=== PATIENT | male | born 1985 | race Caucasian/White ===

== ENCOUNTER 2016-04-28 02:09 | Emergency (ER) | payer MEDICAID | END 2016-04-28 03:00 | disposition home or self-care (01) | LOC: D.ER 02:09 | DX: F41.9 Anxiety disorder, unspecified (principal); F31.9 Bipolar disorder, unspecified; G47.00 Insomnia, unspecified ==

== ENCOUNTER 2016-08-01 11:03 | Emergency (ER) | payer MEDICAID | END 2016-08-01 11:40 | disposition home or self-care (01) | LOC: D.ER 11:03 | DX: F41.9 Anxiety disorder, unspecified (principal); F31.9 Bipolar disorder, unspecified; G47.00 Insomnia, unspecified; M06.9 Rheumatoid arthritis, unspecified ==

== ENCOUNTER 2017-04-26 23:34 | Emergency (ER) | payer OTHER | END 2017-04-27 00:23 | disposition home or self-care (01) | LOC: D.ER 23:34 | DX: J20.9 Acute bronchitis, unspecified (principal) ==

== ENCOUNTER 2017-07-23 22:52 | Emergency (ER) | payer OTHER | END 2017-07-24 01:31 | disposition home or self-care (01) | LOC: D.ER 22:52 | DX: M54.2 Cervicalgia (principal); F17.200 Nicotine dependence, unspecified, uncomplicated ==

== ENCOUNTER 2017-08-09 00:51 | Emergency (ER) | payer SELFPAY | END 2017-08-09 02:08 | disposition home or self-care (01) | LOC: D.ER 00:51 | DX: M54.6 Pain in thoracic spine (principal) ==

== ENCOUNTER 2017-12-21 23:58 | Emergency (ER) | payer SELFPAY ==
[~2017-12-21] VITALS: Ht 172.7 cm; Wt 81.8 kg
[2017-12-22 00:02] VITALS: Ht 172.7 cm; Wt 81.8 kg
[2017-12-22] MEDS ORDERED: LEXAPRO10 MG PO (00:04)
[2017-12-22] MEDS ORDERED: PROAIR HFA8.5 GM INH (00:05)
[2017-12-22] MEDS ORDERED: ROBAXIN500 MG PO (00:05)
[2017-12-22] MEDS ORDERED: NEURONTIN 300300 MG PO (01:01)
[2017-12-22] MEDS ORDERED: TORADOL10 MG PO (01:01)
[2017-12-22] MEDS ORDERED: ZANAFLEX4 MG PO (01:01)
[2017-12-22 01:23] VITALS: BP 116/78
== END 2017-12-22 01:23 | disposition home or self-care (01) ==
LOC: D.ER 23:58
DX: M54.16 Radiculopathy, lumbar region (principal)

== ENCOUNTER 2018-09-25 18:40 | Emergency (ER) | payer SELFPAY ==
[~2018-09-25] VITALS: Ht 172.7 cm; Wt 77.3 kg
[~2018-09-25 18:40] MED LIST: LEXAPRO10 MG PO; NEURONTIN 300300 MG PO; PROAIR HFA8.5 GM INH; ROBAXIN500 MG PO; TORADOL10 MG PO; ZANAFLEX4 MG PO
[2018-09-25 19:00] VITALS: Ht 172.7 cm; Wt 77.3 kg
[2018-09-25 19:50] LABS: BASOPHILS 0.2 % (0-2); EOSINOPHILS 0.6 % (0-7); HEMATOCRIT 45.3 % (42.0-54.0); HEMOGLOBIN 15.5 g/dL (13.5-17.5); IMMATURE GRANULOCYTES 0.2 % (0-5); LYMPHOCYTES 14.1 % (15-50); MCH 31.2 pg (26.0-34.0); MCHC 34.2 g/dL (31.0-37.0); MCV 91.1 fL (80.0-100.0); MEAN PLATELET VOLUME 10.3 fL (7.4-10.4); MONOCYTES 10.6 % (2-11); NEUTROPHILS 74.3 % (40-80); PLATELET COUNT 207 10x3/uL (130-400); RBC 4.97 10x6/uL (4.20-6.10); RDW 12.9 % (11.5-14.5); WBC 10.4 10x3/uL (4.8-10.8)
[2018-09-25 20:01] LABS: APPEARANCE CLEAR (CLEAR); BILIRUBIN NEGATIVE (NEGATIVE); COLOR YELLOW (YELLOW); GLUCOSE NEGATIVE (NEGATIVE); KETONE NEGATIVE (NEGATIVE); NITRITE NEGATIVE (NEGATIVE); PROTEIN NEGATIVE (NEGATIVE); UROBILINOGEN NORMAL (NORMAL)
[2018-09-25 20:13] LABS: ALBUMIN 4.8 g/dL (3.4-5.0); ALKALINE PHOSPHATASE 86 U/L (46-116); ALT (SGPT) 30 U/L (10-68); BILIRUBIN - TOTAL 0.67 mg/dL (0.2-1.3); CALC OSMOLALITY 276 mosm/kg (275-300); CALCIUM 9.8 mg/dL (8.5-10.1); CARBON DIOXIDE 30.8 mmol/L (21.0-32.0); CHLORIDE - SERUM 103 mmol/L (98-107); CREATININE - SERUM 0.9 mg/dL (0.6-1.3); POTASSIUM - SERUM 3.3 mmol/L (3.5-5.1); PROTEIN - SERUM 8.4 g/dL (6.4-8.2); SODIUM 141 mmol/L (136-145); UREA NITROGEN 8 mg/dL (7-18); eGFR NON AFRICAN AMERICAN > 90 mL/min (90-120)
[2018-09-25 20:17] LABS: GLUCOSE 65 mg/dL (74-106)
[2018-09-25] MEDS ORDERED: ULTRAM50 MG PO (21:04)
[2018-09-25] MEDS ORDERED: CLEOCIN HCL300 MG PO (21:04)
[2018-09-26 02:31] VITALS: BP 116/74
== END 2018-09-25 22:38 | disposition home or self-care (01) ==
LOC: D.ER 18:40
PROVIDERS: Emergency Medicine
DX: S30.1XXA Contusion of abdominal wall, initial encounter (principal); X58.XXXA Exposure to other specified factors, initial encounter; Y93.89 Activity, other specified; Y92.89 Other specified places as the place of occurrence of the external cause

== ENCOUNTER 2018-10-24 16:10 | Emergency (ER) | payer SELFPAY ==
[~2018-10-24] VITALS: Ht 172.7 cm; Wt 78.2 kg
[~2018-10-24 16:10] MED LIST changes: +CLEOCIN HCL300 MG PO; +ULTRAM50 MG PO
[2018-10-24 16:14] VITALS: Ht 172.7 cm; Wt 78.2 kg
[2018-10-24 17:26] VITALS: BP 119/87
== END 2018-10-24 17:26 | disposition home or self-care (01) ==
LOC: D.ER 16:10
DX: J02.0 Streptococcal pharyngitis (principal)

== ENCOUNTER 2019-01-06 13:59 | Emergency (ER) | payer SELFPAY ==
[~2019-01-06] VITALS: Ht 172.7 cm; Wt 77.3 kg
[2019-01-06 14:02] VITALS: Ht 172.7 cm; Wt 77.3 kg
[2019-01-06] MEDS ORDERED: ULTRAM50 MG PO (15:32)
[2019-01-06 15:53] VITALS: BP 129/89
== END 2019-01-06 15:53 | disposition home or self-care (01) ==
LOC: D.ER 13:59
DX: M54.5 Low back pain (principal); W11.XXXA Fall on and from ladder, initial encounter

== ENCOUNTER 2019-01-20 03:49 | Emergency (ER) | payer SELFPAY ==
[~2019-01-20] VITALS: Ht 172.7 cm; Wt 75.0 kg
[2019-01-20 03:53] VITALS: Ht 172.7 cm; Wt 75.0 kg
[2019-01-20] MEDS ORDERED: AMBIEN10 MG PO (03:55)
[2019-01-20] MEDS ORDERED: KLONOPIN1 MG PO (03:55)
[2019-01-20] MEDS ORDERED: INDOCIN25 MG PO (03:55)
[2019-01-20] MEDS ORDERED: GLUCOPHAGE500 MG PO (03:56)
[2019-01-20 05:28] VITALS: BP 123/80
== END 2019-01-20 05:28 | disposition home or self-care (01) ==
LOC: D.ER 03:49
DX: S16.1XXA Strain of muscle, fascia and tendon at neck level, initial encounter (principal); S09.90XA Unspecified injury of head, initial encounter; V89.2XXA Person injured in unspecified motor-vehicle accident, traffic, initial encounter; E11.9 Type 2 diabetes mellitus without complications; J45.909 Unspecified asthma, uncomplicated

== ENCOUNTER 2019-01-29 22:28 | Emergency (ER) | payer SELFPAY ==
[~2019-01-29] VITALS: Ht 172.7 cm; Wt 77.3 kg
[~2019-01-29 22:28] MED LIST changes: +AMBIEN10 MG PO; +GLUCOPHAGE500 MG PO; +INDOCIN25 MG PO; +KLONOPIN1 MG PO
[2019-01-29 22:35] VITALS: Ht 172.7 cm; Wt 77.3 kg
[2019-01-30] MEDS ORDERED: ZOFRAN4 MG PO (00:30)
[2019-01-30 00:37] VITALS: BP 134/89
== END 2019-01-30 00:35 | disposition home or self-care (01) ==
LOC: D.ER 22:28
DX: F07.81 Postconcussional syndrome (principal); V89.2XXA Person injured in unspecified motor-vehicle accident, traffic, initial encounter

== ENCOUNTER 2019-03-03 22:02 | Emergency (ER) | payer SELFPAY ==
[~2019-03-03] VITALS: Ht 172.7 cm; Wt 79.5 kg
[~2019-03-03 22:02] MED LIST changes: +ZOFRAN4 MG PO
[2019-03-03 22:13] VITALS: Ht 172.7 cm; Wt 79.5 kg
[2019-03-03] MEDS ORDERED: VOLTAREN75 MG PO (23:54)
[2019-03-04 00:30] VITALS: BP 127/88
== END 2019-03-04 00:30 | disposition home or self-care (01) ==
LOC: D.ER 22:02
DX: R51 Headache (principal); S09.90XA Unspecified injury of head, initial encounter; W22.8XXA Striking against or struck by other objects, initial encounter; Y93.9 Activity, unspecified; Y92.9 Unspecified place or not applicable; Y99.0 Civilian activity done for income or pay

== ENCOUNTER 2019-08-17 17:57 | Emergency (ER) | payer MEDICAID ==
[~2019-08-17] VITALS: Ht 172.7 cm; Wt 79.5 kg
[~2019-08-17 17:57] MED LIST changes: +VOLTAREN75 MG PO
[2019-08-17 18:02] VITALS: Ht 172.7 cm; Wt 79.5 kg
[2019-08-17] MEDS ORDERED: HYDROCODON-ACE1 EAC2 PO (19:44)
[2019-08-17] MEDS ORDERED: AUGMENTIN 875-11 TAB PO (19:44)
[2019-08-17 20:02] VITALS: BP 150/99
== END 2019-08-17 20:04 | disposition home or self-care (01) ==
LOC: D.ER 17:57
DX: T23.252A Burn of second degree of left palm, initial encounter (principal); X08.8XXA Exposure to other specified smoke, fire and flames, initial encounter; Y93.9 Activity, unspecified; Y92.9 Unspecified place or not applicable; E11.9 Type 2 diabetes mellitus without complications; G20 Parkinson's disease; Z79.84 Long term (current) use of oral hypoglycemic drugs